=== PATIENT | female | born 1950 | race Caucasian/White ===

== ENCOUNTER → 2017-02-21 | Outpatient (CLI) | payer OTHER | LOC: FIMAGING 14:49 | PROVIDERS: ATTEND Internal Medicine | DX: M53.3 Sacrococcygeal disorders, not elsewhere classified (principal) ==

== ENCOUNTER 2017-03-05 10:29 | Emergency (ER) | payer OTHER ==
--- NOTE | 2017-03-05 10:43 | CPEKG ---
Heart Rate: 50 RR Interval: 1200 P-R Interval: 192 QRSD Interval: 82 QT Interval: 496 QTC Interval: 453 P Gordon: 70 QRS Gordon: 53 T Wave Gordon: -24 EKG Severity - BORDERLINE ECG - EKG Impression: SINUS BRADYCARDIA EKG Impression: ATRIAL PREMATURE COMPLEX EKG Impression: BORDERLINE T ABNORMALITIES, DIFFUSE LEADS Electronically Signed By: Cam Gaytan 07-Mar-2017 06:06:18
--- NOTE | 2017-03-05 10:48 | EDPHY ---
HPI/HX/ROS/PE/MDM Narrative: CHIEF COMPLAINT: Chest pain HPI: The patient is a 66 y/o female referred by Gastroenterology when she developed chest pain after her colonoscopy. She describes the pain as a dull and tight pressure towards the top of her chest. She also developed nausea after the procedure. She has no history of coronary disease, although her brother does. She is currently not in any discomfort. Denies difficulty breathing, weakness, numbness or other worsening symptoms. REVIEW OF SYSTEMS: Aside from elements discussed in the HPI, a comprehensive 10-point review of systems was reviewed and is negative. PMH: Denies SOCIAL HISTORY: at bedside Lives in [facility] PHYSICAL EXAM: General:Patient is alert, in no acute distress. ENT:Eyes are normal to inspection. ENT inspection normal. Neck: Normal inspection. Full range of motion. Respiratory:No respiratory distress. Breath sounds normal bilaterally. Cardiovascular: Bradycardia. Strong peripheral pulses. Normal cap refill. Abdomen:The abdomen is nontender to palpation. There are no peritoneal signs. There are normal bowel sounds. Back: Normal to inspection. No tenderness to palpation. Skin: Normal color. No rash. Warm and dry. Extremities: Normal appearance. Full range of motion. Neuro: Oriented x3. Normal motor function. Normal sensory function. Portions of this note were transcribed by an ED scribe. I personally performed the history, physical exam, and medical decision making; and confirm the accuracy of the information in the transcribed note. ED Course: The patient is a 66 y/o female who presents with bradycardia secondary to waking up from a colonoscopy. She is currently in no discomfort. EKG was ordered and interpreted by myself. Please see [employer] system for official reading. Chest x-ray and labs are negative for coronary disease. 1214: Reassessed patient, she is asymptomatic. She refused observation/ admission to the hospital. Return precautions discussed; patient is comfortable with this plan. MDM: This patient presents with chest pain that began after colonoscopy, during recovery. Her initial ECG reveals only sinus bradycardia. Her troponin is negative. We discussed the fact that troponin may take up to 6 hours to become positive. CXR shows no free abdominal air or PTX. The patient now feels essentially asymptomatic. I encouraged her to undergo further tests here in the hospital, but she declines. She promises to return for any worsening and to follow-up with web site designer. - Data Points Imaging Results: Imaging Impressions Chest X-Ray 03/05/17 10:31 Impression: There is no acute intrathoracic abnormality. Imaging: Discussed imaging studies w/ bingo caller Radiologist, I viewed and interpreted images myself Laboratory Results: Laboratory Results 03/05/17 10:44 03/05/17 10:44 03/05/17 03/05/17 10:44 10:44 WBC 6.16 10^3/uL 10^3/uL (3.80-9.50) RBC 4.35 10^6/uL 10^6/uL (4.18-5.33) Hgb 13.8 g/dL g/dL (12.6-16.3) Hct 41.9 % % (38.0-47.0) MCV 96.3 fL fL (81.5-99.8) MCH 31.7 pg pg (27.9-34.1) MCHC 32.9 g/dL g/dL (32.4-36.7) RDW 12.6 % % (11.5-15.2) Plt Count 225 10^3/uL 10^3/uL (150-400) MPV 10.1 fL fL (8.7-11.7) Neut % (Auto) 43.0 % % (39.3-74.2) Lymph % (Auto) 43.2 % % (15.0-45.0) [place] % (Auto) 9.1 % % (4.5-13.0) Eos % (Auto) 3.2 % % (0.6-7.6) Baso % (Auto) 1.0 % % (0.3-1.7) Nucleat RBC Rel Count 0.0 % % (0.0-0.2) Absolute Neuts (auto) 2.65 10^3/uL 10^3/uL (1.70-6.50) Absolute Lymphs (auto) 2.66 10^3/uL 10^3/uL (1.00-3.00) Absolute Monos (auto) 0.56 10^3/uL 10^3/uL (0.30-0.80) Absolute Eos (auto) 0.20 10^3/uL 10^3/uL (0.03-0.40) Absolute Basos (auto) 0.06 10^3/uL 10^3/uL (0.02-0.10) Absolute Nucleated RBC 0.00 10^3/uL 10^3/uL (0-0.01) Immature Gran % 0.5 % % (0.0-1.1) Immature Gran # 0.03 10^3/uL 10^3/uL (0.00-0.10) Sodium 141 mEq/L mEq/L (134-144) Potassium 3.9 mEq/L mEq/L (3.5-5.2) Chloride 106 mEq/L mEq/L (97-110) Carbon Dioxide 24 mEq/l mEq/l (22-31) Anion Gap 11 mEq/L mEq/L (8-16) BUN 10 mg/dL mg/dL (7-23) Creatinine 0.6 mg/dL mg/dL (0.6-1.0) Estimated GFR > 60 Glucose 142 mg/dL H mg/dL (70-100) Calcium 9.3 mg/dL mg/dL (8.5-10.4) Troponin I < 0.012 ng/mL ng/mL (0.000-0.034) General Time Seen by Provider: 03/05/17 10:31 Initial Vital Signs: Initial Vital Signs Temperature (C) 36.3 C 03/05/17 10:32 Heart Rate 38 L 03/05/17 10:32 Respiratory Rate 16 03/05/17 10:32 Blood Pressure 103/55 L 03/05/17 10:32 O2 Sat (%) 97 03/05/17 10:32 O2 Delivery Mode Room Air Allergies/Adverse Reactions: No Known Allergies Allergy (Unverified 03/05/17 10:35) Home Medications: Medication Instructions Recorded Premarin Vaginal (*) 03/05/17 Departure - Departure Disposition: Home, Routine, Self-Care Clinical Impression: Chest pain Condition: Good Instructions: Chest Pain (ED) Additional Instructions: Follow-up with your primary doctor within 72 hours. Return to the Emergency Department for fever, chest pain, shortness of breath, increasing pain or other worsening of condition. Follow up with a web site designer for further testing, as soon as possible, within one week. We would be happy to reevaluate you and observe you in the hospital at any time. Referrals: Rajni Leblanc MD [Medical Doctor] - As per Instructions Report Scribed for: Anjel Nunn Report Scribed by: Nadeen Campuzano Date of Report: 03/05/17 Time of Report: 10:59
[2017-03-05 11:08] LABS: % IMMATURE GRANULYOCYTES 0.5 % (0.0-1.1); ABSOLUTE IMMATURE GRANULOCYTES 0.03 10^3/uL (0.00-0.10); ADD DIFF? NO; ADD MORPH? NO; ADD SCAN? NO; ATYPICAL LYMPHOCYTE FLAG 20 (0-99); FRAGMENT RBC FLAG 0 (0-99); HEMATOCRIT 41.9 % (38.0-47.0); HEMOGLOBIN 13.8 g/dL (12.6-16.3); LEFT SHIFT FLG 0 (0-99); LIPEMIA HEMOLYSIS FLAG 80 (0-99); MEAN CELL HEMOGLOBIN 31.7 pg (27.9-34.1); MEAN CELL HEMOGLOBIN CONCENTR. 32.9 g/dL (32.4-36.7); MEAN CELL VOLUME 96.3 fL (81.5-99.8); MEAN PLATELET VOLUME 10.1 fL (8.7-11.7); PLATELET CLUMPS FLAG 0 (0-99); PLATELET COUNT 225 10^3/uL (150-400); RED BLOOD CELL COUNT 4.35 10^6/uL (4.18-5.33); RED CELL DISTRIBUTION WIDTH 12.6 % (11.5-15.2)
[2017-03-05 11:18] LABS: ANION GAP 11 mEq/L (8-16); CALCIUM 9.3 mg/dL (8.5-10.4); CARBON DIOXIDE 24 mEq/l (22-31); CHLORIDE 106 mEq/L (97-110); CREATININE 0.6 mg/dL (0.6-1.0); GLOMERULAR FILTRATION RATE > 60; GLUCOSE 142 mg/dL (70-100); POTASSIUM 3.9 mEq/L (3.5-5.2); SODIUM 141 mEq/L (134-144)
[2017-03-05 11:30] LABS: TROPONIN I < 0.012 ng/mL (0.000-0.034)
[2017-03-05 12:38] VITALS: BP 118/67; PULSE 51; RESP 18; TEMP 98.1; O2SAT 95
== END 2017-03-05 12:42 | disposition home or self-care (01) ==
DX: R07.9 Chest pain, unspecified (principal)

== ENCOUNTER → 2017-04-11 | Outpatient (CLI) | payer OTHER | LOC: FIMAGING 13:48 | PROVIDERS: ATTEND Internal Medicine | DX: R10.2 Pelvic and perineal pain (principal); M53.3 Sacrococcygeal disorders, not elsewhere classified ==